=== PATIENT | male | born 1955 | race Caucasian/White ===

== ENCOUNTER 2019-05-10 07:36 | Day surgery (SDC) ==
--- NOTE | 2019-05-03 17:47 | EKG Report ---
Test Performed on : 05/03/2019 5:29:23 PM Test Reason : PAT Blood Pressure : / mmHG Vent. Rate : 063 BPM Atrial Rate : 063 BPM P-R Int : 156 ms QRS Dur : 100 ms QT Int : 396 ms P-R-T Axes : 066 024 049 degrees QTc Int : 405 ms Sinus rhythm. with marked sinus arrhythmia. Otherwise normal ECG When compared with ECG of 09-NOV-2017 10:05, premature atrial complexes. are no longer present Confirmed by Joseph HERNANDEZ, Luis A Petersen ([id number]) on 05/04/2019 8:31:37 AM
[2019-05-03 18:19] LABS: HEMOGLOBIN A1C 6.3 % (4.8-6.0)
[2019-05-03 18:23] LABS: BASO# 0.04 X1000 (0.0-0.2); BASO% 0.5 % (0.0-0.8); EOS# 0.45 X1000 (0.0-0.7); EOS% 6.2 % (0.0-10.0); HEMATOCRIT 37.1 % (42.0-52.0); HEMOGLOBIN 12.3 g/dL (14.0-18.0); IMM GRAN# 0.04 X1000 (0.0-0.04); IMM GRAN% 0.5 % (0.0-0.5); LYMPH# 2.53 X1000 (1.2-3.4); LYMPH% 34.8 % (20.5-51.1); MCH 33.1 PG (27-31); MCHC 33.2 g/dL (33-37); MCV 99.7 FL (81-99); MONO# 0.77 X1000 (0.11-0.59); MONO% 10.6 % (1.7-9.3); NEUT# 3.45 X1000 (1.4-6.5); NEUT% 47.4 % (42.2-75.2); PLT 227 X1000 (130-400); RBC 3.72 XMIL (4.7-6.1); RDW 17.6 % (11.5-14.5); WBC 7.28 X1000 (4.8-10.8)
[2019-05-03 18:25] LABS: PTT 31.1 Seconds (22.3-41.8)
[2019-05-03 18:33] LABS: AGAP 13; BUN 20 mg/dL (8-22); CALCIUM 8.9 mg/dL (8.8-10.2); CHLORIDE 104 mmol/L (98-107); COSMO 286; CREATININE 1.1 mg/dL (0.7-1.2); ESTIMATED GFR > 60; GLUCOSE 104 mg/dL (70-104); POTASSIUM 3.9 mmol/L (3.5-5.1); SODIUM 142 mmol/L (136-145); TCO2 25 mmol/L (25-35)
[2019-05-03 19:05] LABS: INR 1.02; PROTIME 13.5 Seconds (11.0-16.0)
[2019-05-03 19:23] LABS: URINE SOURCE CLEAN CATCH
[2019-05-03 19:24] LABS: UR EPITHELIAL CELLS <10 /HPF (<10); URINE BACTERIA NEGATIVE /HPF; URINE RBC <10 /HPF (<10); URINE WBC <10 /HPF (<10)
[2019-05-03 19:25] LABS: BILIRUBIN URINE NEGATIVE (NEGATIVE); BLOOD URINE SMALL (NEGATIVE); COLOR YELLOW; GLUCOSE URINE NEGATIVE (NEGATIVE); KETONE URINE NEGATIVE (NEGATIVE); LEUKOCYTES URINE NEGATIVE (NEGATIVE); NITRITE URINE NEGATIVE (NEGATIVE); PH URINE 5.5; PROTEIN URINE TRACE mg/dL (NEGATIVE); SP GRAVITY URINE 1.022; TURBIDITY URINE CLEAR (CLEAR); UROBILINOGEN URINE NORMAL (NORMAL)
[2019-05-10] MEDS ORDERED: DIPRIVAN 1% ONE ×2 (07:38→08:29)
[2019-05-10] MEDS ORDERED: DURAMORPH ONE (08:20)
[2019-05-10] MEDS ORDERED: TORADOL ONE (08:21)
[2019-05-10] MEDS ORDERED: NEOSPORIN G.U. IRRIGANT ONE (08:21)
[2019-05-10] MEDS ORDERED: MARCAINE 0.25% PF ONE (08:21)
[2019-05-10] MEDS ORDERED: SODIUM CHLORIDE 0.9% ONE (08:21)
[2019-05-10] MEDS ORDERED: CYKLOKAPRON 1,000 MG/NS 1,000 MG/100 ML IVPB ONE ×2 (08:21→08:22)
[2019-05-10] MEDS ORDERED: EXPAREL 1.3% ONE (08:21)
[2019-05-10] MEDS ORDERED: VANCOMYCIN ONE (08:21)
[2019-05-10] MEDS ORDERED: REGLAN ONE ×2 (08:24→08:56)
[2019-05-10] MEDS ORDERED: LYRICA ONE (08:24)
[2019-05-10] MEDS ORDERED: LR 1,000 ML ONE (08:24)
[2019-05-10] MEDS ORDERED: KEFZOL 1 GM/D5W 1 GM/50 ML IVPB ONE (08:24)
[2019-05-10] MEDS ORDERED: PEPCID ONE (08:24)
[2019-05-10] MEDS ORDERED: CELEBREX ONE (08:24)
[2019-05-10] MEDS ORDERED: COLACE ONE (08:24)
[2019-05-10] MEDS ORDERED: FENTANYL ONE (08:30)
[2019-05-10] MEDS: PEPCID ONE ×2 (08:56→09:01)
[2019-05-10] MEDS ORDERED: VERSED ONE (09:05)
[2019-05-10] MEDS ORDERED: DECADRON ONE (09:40)
[2019-05-10] MEDS ORDERED: ZOFRAN ONE (09:40)
[2019-05-10] MEDS ORDERED: QUELICIN (DOSE) ONE (09:40)
[2019-05-10] MEDS ORDERED: OFIRMEV 1000 MG/ISOTONIC SOLN 1,000 MG/100 ML BOTTLE ONE (09:40)
[2019-05-10 10:23] LABS: URINE SOURCE CATH
[2019-05-10 10:29] LABS: BILIRUBIN URINE NEGATIVE (NEGATIVE); BLOOD URINE TRACE (NEGATIVE); COLOR YELLOW; GLUCOSE URINE NEGATIVE (NEGATIVE); KETONE URINE NEGATIVE (NEGATIVE); LEUKOCYTES URINE NEGATIVE (NEGATIVE); NITRITE URINE NEGATIVE (NEGATIVE); PH URINE 5.5; PROTEIN URINE TRACE mg/dL (NEGATIVE); SP GRAVITY URINE 1.027; TURBIDITY URINE CLEAR (CLEAR); UROBILINOGEN URINE NORMAL (NORMAL)
[2019-05-10 10:30] LABS: UR EPITHELIAL CELLS <10 /HPF (<10); URINE BACTERIA NEGATIVE /HPF; URINE RBC <10 /HPF (<10); URINE WBC <10 /HPF (<10)
[2019-05-10] MEDS: DILAUDID ONE ×2 (11:36→11:39)
[2019-05-10] MEDS ORDERED: NS 1,000 ML ONE (11:36)
--- NOTE | 2019-05-10 11:49 | Diag Imaging Result Doc PS360 ---
KNEE 1-2 VIEWS-LEFT - 05/10/2019 INDICATION: L TKA TECHNIQUE: Two views COMPARISON: None FINDINGS: There has been left total knee arthroplasty. Alignment is anatomic. No hardware fracture or loosening. IMPRESSION: No complication. Electronically signed by Eb Younger 05/10/2019 11:46 AM
--- NOTE | 2019-05-10 12:03 | OPERATIVE NOTE ---
PROCEDURE DATE: 05/10/2019 PREOPERATIVE DIAGNOSIS: Degenerative osteoarthritis left knee. POSTOPERATIVE DIAGNOSIS: Degenerative osteoarthritis left knee. PROCEDURES: Left total knee arthroplasty, DePuy Attune size 5, posterior stabilized femur size 6 tibial tray, and an 8 mm rotating platform tibial insert, and a 38 mm medialized anatomic patella. SURGEON: Dr. Eleazar Thompson COUNCILOR: KARLI Cid who was necessary for proper retraction and manipulation of the extremity during the case and improved deficiency. SECOND QUANTITATIVE STRATEGY ANALYST: Richar Glaser RN. ANESTHESIA: General. IV FLUIDS: 1200 mL lactated Ringer's. ESTIMATED BLOOD LOSS: 30 mL. TOURNIQUET TIME: 85 minutes at 300 mmHg. COMPLICATIONS: None. INDICATIONS: Patient is a pleasant 63-year-old male with chronic history of pain and discomfort of the left knee. He has continued pain and discomfort despite appropriate nonoperative treatment. X-rays revealed significant degenerative arthritis, and his pain has progressed to affect his activities of daily living. Recommendation to proceed with left total knee arthroplasty was offered. Risks and benefits of surgery were explained, including the risks of anesthesia, , bleeding, infection, failure to relieve pain, postoperative stiffness, nerve injury, blood clots, and other imponderables. All questions were answered. The patient wished to proceed with surgery. DETAILS OF OPERATION: Patient was taken to the operating room and placed supine on operating table. Once adequate anesthesia was obtained, the patient's left lower extremity was subsequently prepped and draped in the usual sterile fashion. An Esmarch was used to exsanguinate the left lower extremity, and tourniquet inflated to 300 mmHg. A standard anterior incision made with skin knife. Medial and lateral skin envelopes were developed. Standard medial parapatellar arthrotomy was then performed. Patella fat pad was excised. Retractors were then placed. Approximately, 1 cm anterior to the PCL insertion, starting reamer was passed. Intramedullary guide with a distal femoral cutting block was pinned in position. The distal femoral cut was then performed in a standard fashion. A sizing block was placed and measured to a size 5. Corresponding pins were placed. Anterior, posterior, and chamfer cuts were then made. Attention was turned to the distal femur where the further resection of the ACL and PCL was performed. Using the extramedullary guide, the proximal tibia was resected. It had a good alignment confirmed with the alignment eugene. The medial and lateral menisci were excised. A curved osteotome was used to remove the posterior osteophytes off the distal femur. A spacer block was placed and had good soft tissue balance in both flexion and extension. Attention was turned back to the proximal tibia where a size 6 tray appeared be the correct size. This was pinned in position. This followed by a central reamer and a fin punch. A box cutting guide was then pinned on the distal femur. A box cut was performed. A trial femoral component was then placed and 2 lug holes were drilled. A trial tibial insert was then placed, and good soft tissue balancing. The patella was everted and resected in standard fashion. A 38 appeared to be the correct size. Corresponding holes were drilled. A trial patella component was then placed. Patella was reduced and carried through range of motion. It had good patellofemoral tracking. The trial components were then removed. Copious irrigation was performed with antibiotic pulsatile lavage while vancomycin was mixed with cement on the back table. Sequential cementing was then performed first with the tibial tray, and excess cement was removed with [place] followed by the femoral component, and excess cement removed with a [place] followed by trial tibial insert in full extension. Axial loading was maintained while cement cured. The patella cemented in a standard fashion. Patella clamp was placed. While cement was curing, Exparel was placed in deep soft tissue, as well as the subcutaneous tissue. The extra cement had cured. Peripheral cement was removed with a small osteotome. An 8 mm tibial insert appeared to correct size. The trial insert was removed. Exparel was placed in the deep posterior capsule. The wound was copiously irrigated once again with antibiotic pulsatile lavage. An 8 mm rotating platform tibial insert was then placed. The knee was carried through range of motion. It had good range of motion, good soft tissue balancing, and good patellofemoral tracking. A 1/8 Hemovac drain was placed and was not sewn in. Copious irrigation was then performed once again with antibiotic pulsatile lavage. #1 Vicryl was then used to repair the arthrotomy, followed by 2- 0 Vicryl to repair the subcutaneous tissue, and skin megan. Adaptic, sterile 4 x 4's, Webril, cryo unit, and Elmer wrap was applied to the left lower extremity. Patient tolerated this well. No complications. He was transferred to the recovery room in stable condition. cc: Eleazar Thompson MD
[2019-05-10] MEDS: NS 1,000 ML IV SCH ×2 (12:30→17:11)
[2019-05-10] MEDS ORDERED: MORPHINE IV PRN ×3 (12:30)
[2019-05-10] MEDS ORDERED: MILK OF MAGNESIA PO PRN (12:30)
[2019-05-10] MEDS ORDERED: OXY IR PO PRN (12:30)
[2019-05-10] MEDS ORDERED: ZOFRAN PO PRN (12:30)
[2019-05-10] MEDS: KEFZOL 1 GM/D5W 1 GM/50 ML IVPB IV SCH (17:11)
[2019-05-10] MEDS ORDERED: NORCO-10 PO PRN (17:52)
[2019-05-10] MEDS: OXY IR PO PRN (21:08)
[2019-05-10] MEDS: PERIDEX MT SCH (21:09)
[2019-05-11] MEDS: KEFZOL 1 GM/D5W 1 GM/50 ML IVPB IV SCH (01:47)
[2019-05-11] MEDS: OXY IR PO PRN ×3 (04:54→11:16)
[2019-05-11 07:08] LABS: HEMATOCRIT 29.4 % (42.0-52.0); HEMOGLOBIN 9.4 g/dL (14.0-18.0)
[2019-05-11 07:26] LABS: CALCIUM 8.2 mg/dL (8.8-10.2); CREATININE 1.3 mg/dL (0.7-1.2); POTASSIUM 4.1 mmol/L (3.5-5.1)
[2019-05-11 07:44] VITALS: BP 116/50
[2019-05-11] MEDS: PERIDEX MT SCH (08:16)
[2019-05-11] MEDS ORDERED: ASPIRIN PO SCH (09:00)
--- NOTE | 2019-05-11 09:49 | ORTHOPAEDICS PROGRESS NOTE ---
DATE: 05/11/2019 BRIEF HISTORY: The patient is a pleasant 63-year-old male who is one day status post left total knee arthroplasty. Patient is currently resting comfortably. PHYSICAL EXAMINATION: His left lower extremity dressing is intact. Calf is soft. He is able to perform a straight leg raise, and actively flex and bend his knee. He has active dorsiflexion and plantar flexion. LABORATORY: His labs are pending. IMPRESSION: Postoperative day #1 status post left total knee arthroplasty. PLAN: At this point, we will plan on discharging home after physical therapy. We will arrange for home physical therapy. Patient will follow up on 05/23/2019. cc: Eleazar Thompson MD
== END 2019-05-11 11:24 | disposition home or self-care (01) ==
LOC: 4N 07:36 → OR 07:36
PROVIDERS: ATTEND Orthopaedic Surgery Adult Reconstructive Orthopaedic Surgery